=== PATIENT | male | born 1950 | race Caucasian/White ===

== ENCOUNTER 2019-09-15 10:46 | Outpatient (REF) | payer MEDICARE, MEDICAID, SELFPAY ==
[2019-09-15 21:53] LABS: Calculated LDL 85 mg/dL; Cholesterol 145 mg/dL (<200); HDL Cholesterol 46 mg/dL (40-60); Triglyceride 73 mg/dL (<150)
== END 2019-09-15 11:06 ==
LOC: NCHCN 10:46
PROVIDERS: Visit Provider Internal Medicine
DX: Z13.220 Encounter for screening for lipoid disorders (principal)
CPT/HCPCS: 80061

== ENCOUNTER 2020-09-18 11:45 | Outpatient (REF) | payer MEDICARE, OTHER, SELFPAY ==
[2020-09-19 17:36] LABS: PSA, Screening 2.1 ng/mL (0.0-4.5)
== END 2020-09-18 12:05 ==
LOC: NCHCN 11:45
PROVIDERS: Visit Provider Internal Medicine
DX: Z12.5 Encounter for screening for malignant neoplasm of prostate (principal)
CPT/HCPCS: 84153

== ENCOUNTER 2021-09-17 08:19 | Outpatient (REF) | payer MEDICARE, OTHER, SELFPAY ==
[2021-09-17 15:30] LABS: Anion Gap 7.7 mmol/L (3-11); BUN 20 mg/dL (7-18); CO2 30.3 mmol/L (21.0-32.0); CREATININE 0.9 mg/dL (0.70-1.30); Calcium 9.1 mg/dL (8.5-10.1); Calculated LDL 108 mg/dL (<100); Chloride 105 mmol/L (98-107); Cholesterol 181 mg/dL (<200); Glucose 106 mg/dL (74-106); HDL Cholesterol 64 mg/dL (40-60); Potassium 4.1 mmol/L (3.5-5.1); Sodium 143 mmol/L (136-145); Triglyceride 49 mg/dL (<150)
== END 2021-09-17 08:20 | disposition home or self-care (01) ==
LOC: NCHCN 08:19
PROVIDERS: Visit Provider Internal Medicine
DX: Z00.00 Encounter for general adult medical examination without abnormal findings (principal)
CPT/HCPCS: 80048; 80061

== ENCOUNTER 2022-09-30 10:33 | Outpatient (REF) | payer MEDICARE, SELFPAY ==
[2022-09-30 14:17] LABS: HCT 44.4 % (40.0-50.0); HGB 14.5 g/dL (13.5-17.5); MCH 29.3 pg (27.0-33.0); MCHC 32.7 % (32.0-36.0); MCV 90 fL (80-95); MPV 9.8 fL (8.0-11.0); Platelet Count 273 10^3/uL (130-400); RBC 4.95 10^6/uL (4.36-5.78); RDW-SD 46.2 fL; WBC 5.85 10^3/uL (4.4-10.8)
[2022-09-30 14:49] LABS: ALT 26 U/L (16-63); AST 23 U/L (15-37); Alkaline Phosphatase 56 U/L (46-116); Anion Gap 9.2 mmol/L (3-11); BUN 22 mg/dL (7-18); Bilirubin, Total 0.3 mg/dL (0.2-1.0); CO2 28.8 mmol/L (21.0-32.0); Calcium 9.1 mg/dL (8.5-10.1); Chloride 106 mmol/L (98-107); Estimated GFR 80.97 (mL/min/1.73m2); Glucose 126 mg/dL (74-106); Potassium 4.4 mmol/L (3.5-5.1); Sodium 144 mmol/L (136-145); TSH (W/Ref FT4) 1.33 uIU/mL (0.36-3.74); Total Protein 6.7 g/dL (6.4-8.2)
[2022-09-30 15:03] LABS: Vitamin D 25 Total 18.4 ng/mL (30-100)
[2022-09-30 23:09] LABS: Parathyroid Hormone,Intact 47 pg/mL (19-88)
[2022-10-01 13:18] LABS: IgA 280 mg/dL (85-499); Interpretation (See Note); Tissue Transglutaminase IgA 1.2 U/mL (<4.0)
[2022-10-12 16:51] LABS: Testosterone, Free 8.32 ng/dL (3.28-12.2); Testosterone, Total 258 ng/dL (240-950)
== END 2022-09-30 10:34 | disposition home or self-care (01) ==
LOC: NCHCN 10:33
PROVIDERS: Visit Provider Internal Medicine
DX: R53.83 Other fatigue (principal); N52.9 Male erectile dysfunction, unspecified; R10.9 Unspecified abdominal pain; E55.9 Vitamin D deficiency, unspecified
CPT/HCPCS: 80053; 82306; 82784; 83516; 84402; 84403; 85027; 83970; 84443

== ENCOUNTER 2023-01-04 15:08 | Outpatient (REF) | payer MEDICARE, SELFPAY ==
[2023-01-04 22:09] LABS: Vitamin D 25 Total 27.6 ng/mL (30-100)
== END 2023-01-04 15:09 | disposition home or self-care (01) ==
LOC: NCHCN 15:08
PROVIDERS: Visit Provider Internal Medicine
DX: E55.9 Vitamin D deficiency, unspecified (principal)
CPT/HCPCS: 82306

== ENCOUNTER 2023-09-20 11:04 | Outpatient (REF) | payer MEDICARE, SELFPAY ==
[2023-09-20 14:52] LABS: Anion Gap 10.2 mmol/L (3-11); BUN 27 mg/dL (7-18); CO2 26.8 mmol/L (21.0-32.0); CREATININE 0.9 mg/dL (0.70-1.30); Calculated LDL 91 mg/dL (<100); Chloride 106 mmol/L (98-107); Cholesterol 164 mg/dL (<200); Estimated GFR 91.31 (mL/min/1.73m2); Glucose 114 mg/dL (74-106); HDL Cholesterol 66 mg/dL (40-60); Sodium 143 mmol/L (136-145); Triglyceride 35 mg/dL (<150)
== END 2023-09-20 11:05 | disposition home or self-care (01) ==
LOC: NCHCN 11:04
PROVIDERS: Visit Provider Internal Medicine
DX: Z00.00 Encounter for general adult medical examination without abnormal findings (principal)
CPT/HCPCS: 80048; 80061

== ENCOUNTER 2024-09-29 12:43 | Outpatient (REF) | payer MEDICARE, SELFPAY ==
[2024-09-29 16:15] LABS: Hemoglobin A1C 6.2 % (<5.7)
[2024-09-29 16:37] LABS: Anion Gap 7.3 mmol/L (3-11); BUN 26 mg/dL (7-18); CO2 28.7 mmol/L (21.0-32.0); CREATININE 0.9 mg/dL (0.70-1.30); Calcium 9.1 mg/dL (8.5-10.1); Calculated LDL 81 mg/dL (<100); Chloride 107 mmol/L (98-107); Cholesterol 157 mg/dL (<200); Estimated GFR 90.74 (mL/min/1.73m2); Glucose 92 mg/dL (74-106); HDL Cholesterol 61 mg/dL (40-60); Potassium 4.4 mmol/L (3.5-5.1); Sodium 143 mmol/L (136-145); Triglyceride 78 mg/dL (<150); Vitamin D 25 Total 23.1 ng/mL (30-100)
== END 2024-09-29 12:44 | disposition home or self-care (01) ==
LOC: NCHCN 12:43
PROVIDERS: Visit Provider Internal Medicine
DX: Z13.220 Encounter for screening for lipoid disorders (principal); R73.03 Prediabetes; E55.9 Vitamin D deficiency, unspecified
CPT/HCPCS: 80048; 80061; 82306; 83036

== ENCOUNTER 2025-01-26 18:46 | Outpatient (REF) | payer MEDICARE, SELFPAY ==
[2025-01-29 14:56] LABS: Albumin g/dL 4.1 g/dL (3.6-5.2); Immunotyping, Serum (See Note); Total Protein 6.5 g/dL (6.3-8.2)
== END 2025-01-26 18:47 | disposition home or self-care (01) ==
LOC: NCHCN 18:46
PROVIDERS: Visit Provider Internal Medicine
DX: M81.0 Age-related osteoporosis without current pathological fracture (principal)
CPT/HCPCS: 84155; 84165; 86320

== ENCOUNTER 2025-01-30 16:12 | Outpatient (REF) | payer MEDICARE, SELFPAY ==
[2025-02-01 09:02] LABS: Calcium Urine 6.3 mg/dL (See Note); Calcium Urine 24 hr 176 mg/24hr (100-300); Timed Urine Volume 2800 mL
[2025-02-01 14:53] LABS: Albumin, Urine % 19.4 %; Albumin, Urine mg/24hrs <27 mg/24hrs; Globulins, Urine % 80.6 %; Globulins, Urine mg/24hrs <113 mg/24hrs; Immunotyping, Urine (See Note); Total Protein Urine <5 mg/dL (See Note); Total Protein, Urine 24hrs <140 mg/24hrs (<150); Urine Volume 2800 mL
== END 2025-01-30 16:13 | disposition home or self-care (01) ==
LOC: NCHCN 16:12
PROVIDERS: Visit Provider Internal Medicine
DX: M81.0 Age-related osteoporosis without current pathological fracture (principal)
CPT/HCPCS: 84156; 84166; 86335; 81050; 82340

== ENCOUNTER 2025-05-21 15:12 | Outpatient (REF) | payer MEDICARE, SELFPAY ==
[2025-05-21 16:35] LABS: Anion Gap 6.0 mmol/L (3-11); BUN 27 mg/dL (7-18); CO2 30.0 mmol/L (21.0-32.0); Calcium 9.4 mg/dL (8.5-10.1); Calculated LDL 53 mg/dL (<100); Chloride 106 mmol/L (98-107); Cholesterol 129 mg/dL (<200); Estimated GFR 94.03 (mL/min/1.73m2); Glucose 99 mg/dL (74-106); HDL Cholesterol 69 mg/dL (>or=40); Potassium 5.0 mmol/L (3.5-5.1); Sodium 142 mmol/L (136-145); Triglyceride 36 mg/dL (<150); Vitamin D 25 Total 32 ng/mL (30-100)
[2025-05-21 17:52] LABS: Hemoglobin A1C 6.0 % (<5.7)
== END 2025-05-21 15:13 | disposition home or self-care (01) ==
LOC: NCHCN 15:12
PROVIDERS: PCP Internal Medicine; Visit Provider Internal Medicine
DX: E78.2 Mixed hyperlipidemia (principal); R73.03 Prediabetes; E55.9 Vitamin D deficiency, unspecified
CPT/HCPCS: 80048; 80061; 82306; 83036